=== PATIENT | female | born 1960 | race Caucasian/White ===

== ENCOUNTER → 2017-02-06 | Outpatient (CLI) | payer BC ==
[~2017-02-06] MED LIST: BACTRIM DS 8001 TA1 PO; ESTRADIOL0.5 MG; LIPITOR10 MG PO; METFORMIN 500M500 M1 PO; PAROXETINE HCL10 MG PO; VENLAFAXINE HYD75 MG PO; VITAMIN D50000 IU PO
--- NOTE | 2017-02-11 11:31 | RADIOLOGY REPORT PS360 ---
DIG MAMM-SCREEN MILI W/CAD CAD Screening COMPARISON: Digital mammograms 08/23/2015 and 01/13/2013 INDICATION: There is no personal or family history of breast cancer TECHNIQUE: Standard CC and MLO images were obtained. R2 CAD reviewed. FINDINGS: There is a diffusely dense and heterogenic parenchymal pattern somewhat lessening the sensitivity mammography. There is a possible new asymmetric density central portion left breast with somewhat ill-defined borders. Recommend the patient return for spot compression views in MLO and CC projection and ultrasound for additional evaluation. There are few benign-appearing calcifications in each breast, there are no suspicious microcalcifications. There is a mole marker left axilla. IMPRESSION: Mildly dense and heterogenic parenchymal pattern with possible new asymmetric density left breast and recommend patient return for additional imaging. BI-RADS CATEGORY: 0_Incomplete: Need additional imaging RECOMMENDED FOLLOWUP: ADD ADDITIONAL IMAGING (A letter has been sent to the patient regarding results of the study.)
== END ==
LOC: RAD 16:30
DX: Z12.31 Encounter for screening mammogram for malignant neoplasm of breast (principal)
CPT/HCPCS: G0202

== ENCOUNTER → 2017-02-13 | Outpatient (CLI) | payer BC ==
[2017-02-13 10:34] LABS: HEMOGLOBIN 14.8 g/dL (12.2-16.2); LYMPH # 4.1 K/mm3 (0.7-4.5); LYMPH % 39.7 % (10-50.0)
[2017-02-13 11:37] LABS: BUN 14 mg/dL (7-18)
[2017-02-13 11:42] LABS: GFR (ESTIMATED) 51 ML/MIN (59-)
[2017-02-14 08:51] LABS: Vitamin D, 25-Hydroxy 59.2 ng/mL (30.0-100.0)
[2017-02-14 12:36] LABS: Creatinine, Urine 217.3 mg/dL (Not Estab.); Microalbumin, Urine 7.2 ug/mL (Not Estab.)
== END ==
LOC: LAB 10:07
PROVIDERS: Nurse Practitioner Family
DX: R53.83 Other fatigue (principal); E11.9 Type 2 diabetes mellitus without complications; E78.2 Mixed hyperlipidemia; E55.9 Vitamin D deficiency, unspecified

== ENCOUNTER → 2017-02-18 | Outpatient (CLI) | payer BC ==
--- NOTE | 2017-02-21 09:12 | RADIOLOGY REPORT PS360 ---
DIG MAMM-DX UNI A/VWS-LT W/CAD, US BREAST-LT COMPLETE W/AXILLA COMPARISON: 02/06/2017, 08/23/2015 and multiple other previous mammograms INDICATION: Follow-up abnormal mammogram ORDERING PHYSICIAN: Gilbert Dowling MD PATIENT AGE: 56 years TECHNIQUE: Spot compression views and left breast ultrasound FINDINGS: There remains an ill-defined area of asymmetric increased density in the lower outer aspect of the left breast. The margins are obscured. This does not completely disappeared on the spot compression views and persists on the rolled views. No other abnormalities are evident. Left breast ultrasound: At 12:00 there is a 14 x 5 mm area of decreased echogenicity. The margins are somewhat irregular. The lesion is wider than it is tall however, this does not represent a simple cyst. Biopsy is suggested by sonographic approach. IMPRESSION: The asymmetric density in the lower outer aspect of the left breast does persist on spot compression views but is very ill-defined and may represent fibroglandular tissue. However, this has developed since the older mammograms. Therefore, biopsy is recommended and may be attempted by the stereotactic approach. This is not visible by ultrasound. In addition, ultrasound demonstrates an additional suspicious nodule at 12:00 for which biopsy is also recommended. This nodule is not visible by mammography. BI-RADS CATEGORY: 4_Suspicious Abnormality RECOMMENDED FOLLOWUP: 1. Stereotactic directed biopsy of the left breast. 2. Ultrasound-guided mammotome biopsy of the left breast. (A letter has been sent to the patient regarding results of the study.)
== END ==
LOC: RAD 14:26
DX: R92.8 Other abnormal and inconclusive findings on diagnostic imaging of breast (principal)
CPT/HCPCS: G0206-LT

== ENCOUNTER → 2017-03-19 | Outpatient (CLI) | payer BC ==
--- NOTE | 2017-03-26 10:59 | RADIOLOGY REPORT PS360 ---
US BIOPSY OR PARACENTESIS CLINICAL INDICATION: Abnormal left breast ultrasound with a nodule at 12:00. CORE BX LT BREAST DENSITY ORDERING PHYSICIAN: Eve De La Cruz APRN PATIENT AGE: 56 years COMPARISON: 02/18/2017 FINDINGS: Following obtaining informed consent under aseptic conditions and local anesthesia with 1% lidocaine a dermatotomy was performed of the nodule at 12:00 and 16-gauge core biopsy needle inserted. 5 passes were made into the nodule and multiple cores obtained. The patient tolerated the procedure well without evidence of immediate complications. Pathology: Dense stromal fibrosis. No atypia or malignancy. IMPRESSION: Uneventful core biopsy of the sonographic abnormality of the left breast at 12:00 showing benign findings. Recommend 6 month sonographic follow-up
--- NOTE | 2017-03-26 11:10 | RADIOLOGY REPORT PS360 ---
STEREOTATIC BX-W/CLIP-LT DIG MAMM-DX UNI-LT W/CAD, COMPARISON: Multiple previous mammograms including 02/18/2017 INDICATION: Asymmetric density lower outer left breast ORDERING PHYSICIAN: Eve De La Cruz APRN PATIENT AGE: 56 years TECHNIQUE: Following obtaining informed consent, the patient was placed in the stereotactic unit and asymmetric density localized using standard stereotactic technique. The abnormality was very difficult to visualize.. Under aseptic conditions and local anesthesia with 1% buffered lidocaine and deeper tissues with lidocaine mixed with epinephrine at the mammotomy was performed and mammotomy needle inserted. Multiple mammotome biopsies were obtained. The patient tolerated the procedure well without evidence of May complication. A nonferromagnetic clip was placed. Post biopsy mammogram: The clip is felt to be displaced laterally during engagement. Biopsy defect is noted along the anterior aspect of the suspected asymmetric density. Pathology: Fibrocystic changes with fragments of the cyst wall. Proliferative breast tissue. Negative for atypia or malignancy. IMPRESSION: Status post stereotactic directed biopsy left breast. The asymmetric density was very difficult to localize and the biopsy changes are present along the anterior aspect of the suspected abnormality. Suspect that the asymmetric density is related related to fibroglandular tissue as this was very difficult to localize by stereotactic technique and not visible targeted ultrasound. Cannot be one or percent certain that the suspected abnormality was sampled appropriately. The abnormality has also been present on previous studies waxing and waning, also a benign feature Recommendations: 6 month mammographic follow-up with spot compression views
== END ==
LOC: RAD 09:33
PROC: 0H9U3ZX Drainage of Left Breast, Percutaneous Approach, Diagnostic (ICD-10-PCS; principal; 2017-03-19)
DX: R92.8 Other abnormal and inconclusive findings on diagnostic imaging of breast (principal)
CPT/HCPCS: G0206-LT